=== PATIENT | male | born 2000 | race Caucasian/White ===

== ENCOUNTER 2021-09-19 19:30 | Emergency (ER) | payer OTHER, SELFPAY ==
[2021-09-19 19:46] VITALS: BP 180/88; PULSE 124; O2SAT 98
== END 2021-09-19 21:22 | disposition left against medical advice (07) ==
PROVIDERS: Emergency Provider Emergency Medicine
DX: R51.9 Headache, unspecified (principal); R68.83 Chills (without fever); R11.10 Vomiting, unspecified

== ENCOUNTER 2022-06-30 03:35 | Emergency (ER) | payer OTHER, SELFPAY ==
[2022-06-30 03:40] VITALS: BP 114/79; PULSE 66; RESP 12; TEMP 36.5; O2SAT 97; BMI 25.1
[2022-06-30 04:03] VITALS: BP 148/78; PULSE 55; RESP 18; TEMP 36.1; O2SAT 97
--- NOTE | 2022-06-30 04:09 | PC.NURSE ---
pt placed on hall monitor - ekg being obtained. capnography on. pt vomiting.
--- NOTE | 2022-06-30 04:12 | ECG_ITS ---
Test Reason : ETOH Blood Pressure : / mmHG Vent. Rate : 065 BPM Atrial Rate : 065 BPM P-R Int : 160 ms QRS Dur : 098 ms QT Int : 390 ms P-R-T Axes : 071 094 058 degrees QTc Int : 405 ms Normal sinus rhythm Rightward axis Intra-ventricular conduction delay Possible Early repolarization Borderline ECG No previous ECGs available Referred By: Gem Ortega Electronically Signed By:WING GOINS MD
[2022-06-30 04:58] LABS: MANUAL DIFF FLAG NO
[2022-06-30 04:59] LABS: Basophils Percent Auto 0.5 % (0-2); Eosinophils Percent Auto 0.4 % (0-4); Hematocrit 41.9 % (42.0-52.0); Hemoglobin 12.8 g/dl (14.0-18.0); Imm Gran Abs Auto 0.02 X10*3/uL (0.00-0.03); Imm Gran Pct Auto 0.3 % (0.0-0.4); Lymphocytes Absolute Auto 1.8 X10*3/uL (1.2-4.9); Lymphocytes Percent Auto 22.4 % (20-40); Mean Corpuscular HGB Conc 30.5 g/dl (31.0-36.0); Mean Corpuscular Hemoglobin 22.3 pg (27.0-33.0); Mean Corpuscular Volume 73.1 fL (80.0-98.0); Mean Platelet Volume 10.8 fL (9.4-12.4); Monocytes Absolute Auto 0.4 X10*3/uL (0.1-1.2); Monocytes Percent Auto 5.4 % (2-11); Neutrophils Absolute Auto 5.6 x10*3/uL (2.0-8.3); Platelet Count 346 X10*3/uL (160-400); Red Blood Count 5.73 X10*6/uL (4.60-5.80); Red Cell Distribution Width 13.7 % (11.0-16.0); White Blood Count 7.9 X10*3/uL (4.8-10.8)
--- OUTSIDE RECORDS SUMMARY | 2022-06-30 05:00 | XMS_ITS | Continuity of Care Document ---
:2000 Author Organization [facility] Address [address] [place] [address]- Care Team Providers Name Role Phone Not on Staff, PCP Primary Care Physician Unavailable Encounter [facility] [place] Date(s): 07/07/21 - 07/07/[address] [address]- Encounter Diagnosis Chest wall pain (Final) - 07/07/21 Discharge Disposition: A-D/C Home Attending Physician: Radha Jerez MD Admitting Physician: Radha Jerez MD Referring Physician: Not on Staff, Referring MD Allergies, Adverse Reactions, Alerts Substance Reaction Severity Status NKA Active Immunizations Given and Recorded Vaccine Date Status Refusal Reason influenza virus vaccine, inactivated 05/29/15 Given influenza virus vaccine, inactivated 09/27/14 Given Medications amphetamine-dextroamphetamine 15 mg oral tablet TAKE 1 TABLET BY MOUTH EVERY MORNING Start Date: 05/31/15 Status: OrderedClonidine 0 Refills, Maintenance, 01/23/15 15:36:19 Start Date: 01/23/15 Status: OrdereddiphenhydrAMINE 50 mg oral capsule TAKE ONE CAPSULE BY MOUTH AT BEDTIME Start Date: 05/31/15 Status: Orderedferrous sulfate 325 mg oral enteric coated tablet 1 tablet = 325 mg, By Mouth, 2 times a day, may take with food to minimize abdominal discomfort, # 30 tablet, 1 Refills, Maintenance, 01/23/15 15:00:04, EC Tablet, instructions in telugu please, 1 tablet By Mouth 2 times a day,Instr:may take with otto... Start Date: 01/23/15 Status: Orderedibuprofen 600 mg oral tablet 600 mg, 1, tablet, By Mouth, Every 6 hours, # 40 tablet, Refills 0, Tot. Refills 0, Maintenance, 04/08/18 15:54:39 EDT, Print Requisition Start Date: 04/08/18 Status: OrderedOralone 0.1% mucous membrane paste 1 application, By Mouth, 3 times a day, apply small dab to the lesion until a thin film develops, # 5 Gm, 0 Refills, Maintenance, 01/25/15 16:07:28, Paste, 1 application By Mouth 3 times a day,Instr:apply small dab to the lesion until a thin film deve... Start Date: 01/25/15 Status: OrderedPercocet-5/325 325 mg-5 mg oral tablet 1, tablet, By Mouth, Every 4 hours, PRN, partial fill up on patient request, # 12 tablet, Refills 0,Tot. Refills 0, Maintenance, for pain, 04/08/18 15:54:37 EDT, Print Requisition, Tablet Start Date: 04/08/18 Status: Orderedsertraline 50 mg oral tablet TAKE 1 TABLET BY MOUTH EVERY MORNING Start Date: 05/31/15 Status: OrderedtraZODone 50 mg oral tablet TAKE 1 TABLET BY MOUTH AT BEDTIME Start Date: 05/31/15 Status: OrderedZofran ODT 4 mg oral tablet, disintegrating 1 tablet = 4 mg, By Mouth, Every 8 hours, # 12 tablet, 0 Refills, Maintenance, 04/08/18 15:54:26 EDT Start Date: 04/08/18 Status: Ordered Problem List Condition Effective Dates Status Health Status Informant Anemia(Confirmed) Active Anxiety - Psychiatrist: Yessi Mack(Confirmed)1 Ulcer aphthous oral(Confirmed) Active ADHD (attention deficit hyperactivity Active disorder)(Confirmed) DCF Involvement(Confirmed) Active Weight loss(Confirmed) Active 1Gandara Results Radiology Reports Exam Date Time Procedure Performing Provider Status 07/07/21 1:56 PM Chest 2 Views Frontal and Ekenbarger , Chayo L ; Auth (Verified) Lat Notes:(Chest 2 Views Frontal and Lat) Reason For Exam: Pleuritic PainRESULT: Chest 2 Views Frontal and Lat PA and lateral chest dated July 07, 2021. No prior studies are available. HISTORY: Pain. FINDINGS: The cardiac silhouette is within normal limits for size. Hilar and mediastinal structures are unremarkable. No airspace infiltrate or pleural effusion is identified. Visualized osseous structures are within normal limits. IMPRESSION: Normal chest x-ray. Examination 35970. Thank you for allowing me to participate in the care of this patient. WSN: [id number] Ordering Physician: Kym Rivers Dictated By: Casey Cerrato MD Dictated Date/Time: 07/07/21 2:12 pm Reviewed By: Casey Cerrato MD Signed By: Casey Cerrato MD Signed Date/Time: 07/07/21 2:12 pm Transcribed By: GEORGE Transcribed Date/Time: 07/07/21 2:12 pm Vital Signs Most recent to oldest 1 2 3 [Reference Range]: Oxygen Saturation [94-100 99 % 99 % 98 % %] (07/07/21 3:14 PM) (07/07/21 1:26 PM) (07/07/21 11:39 AM) Pulse Rate [55-90 bpm] 80 bpm 65 bpm 80 bpm (07/07/21 3:14 PM) (07/07/21 1:26 PM) (07/07/21 11:39 AM) Blood Pressure 135/64 mm Hg 134/72 mm Hg 142/70 mm Hg [90-138/55-84 mm Hg] (07/07/21 3:14 PM) (07/07/21 1:26 PM) *H* (07/07/21 11:39 AM) Respiratory Rate [16-30 19 br/min 18 br/min 17 br/mi n br/min] (07/07/21 3:14 PM) (07/07/21 1:26 PM) (07/07/21 11:39 AM) Temperature [96.8-100.4 98.1 DegF 98 DegF DegF] (07/07/21 11:39 AM) (07/07/21 10:44 AM) Mode of Delivery (Oxygen) Room air Room air Room a ir (07/07/21 3:14 PM) (07/07/21 1:26 PM) (07/07/21 11:39 AM) Temperature Route Oral Oral (07/07/21 11:39 AM) (07/07/21 10:44 AM) Social History Social History Type Response Smoking Status Never smoker entered on: 09/30/14 Sex Male
--- OUTSIDE RECORDS SUMMARY | 2022-06-30 05:00 | XMS_ITS | Continuity of Care Document ---
:2000 Author Organization [facility] Address [address] [place] [address]- Care Team Providers Name Role Phone Not on Staff, PCP Primary Care Physician Unavailable Encounter [facility] Date(s): 03/05/20 - 03/05/[address] [address]- [facility] Discharge Disposition: A-D/C Walkout Attending Physician: Not on Staff, Attending MD Admitting Physician: Not on Staff, Admitting MD Referring Physician: Not on Staff, Referring [...] Maintenance, 01/23/15 15:00:04, EC Tablet, instructions in hebrew please, 1 tablet By Mouth 2 times [...] DCF Involvement(Confirmed) Active Weight loss(Confirmed) Active 1Gandara Social History Social History Type Response Smoking Status Never smoker entered on: 09/30/14 Sex Male
--- OUTSIDE RECORDS SUMMARY | 2022-06-30 05:00 | XMS_ITS | Continuity of Care Document ---
:2000 Author Organization [facility] Address [address] [place] [address]- Care Team Providers Name Role Phone Not on Staff, PCP Primary Care Physician Unavailable [place] [facility] [place] Date(s): 08/29/21 - 08/29/[address] [address]- Encounter Diagnosis Viral syndrome (Final) - 08/29/21 Flu (Final) - 08/29/21 Discharge Disposition: A-D/C Home Attending Physician: Rey Miller MD Admitting Physician: Rey Miller MD Referring Physician: Not on Staff, Referring [...] Maintenance, 01/23/15 15:00:04, EC Tablet, instructions in syriac please, 1 tablet By Mouth 2 times a day,Instr:may take with otto... Start Date: 01/23/15 Status: Orderedibuprofen 600 mg oral tablet 600 mg, 1, tablet, By Mouth, Every 6 hours, # 40 tablet, Refills 0, Tot. Refills 0, Maintenance, 04/08/18 15:54:39 EDT, Print Requisition Start Date: 04/08/18 Status: Orderedondansetron 4 mg oral tablet, disintegrating 1 tablet = 4 mg, By Mouth, Every 8 hours, PRN Nausea & Vomiting, for 3 days, # 15 tablet, 0 Refills, Acute 09/01/21 7:19:00 EST, 08/29/21 7:19:00 EST, Tablet, [facility]/pharmacy #[id number], Partial fill upon patient request if the prescription is for a schedule... Start Date: 08/29/21 Stop Date: 09/01/21 Status: OrderedOralone 0.1% mucous membrane paste 1 [...] Involvement(Confirmed) Active Weight loss(Confirmed) Active 1Gandara Results Orders for Microbiology Reports Name Date Group A Strep Screen and Culture 08/29/21 Microbiology Reports TEST:Group A Strep Screen and Culture STATUS:Unauthenticated BODY SITE: SOURCE:THROAT COLLECTED DATE/TIME:08/29/21 5:45 AMGroup A Strep Screen and Culture SPECIMEN DESCRIPTION : THROAT SWAB SPECIAL REQUESTS : NONE DIRECT EXAM : RAPID GROUP A RESULT IS NEGATIVE, REFER TO CULTURE RESULT. REPORT STATUS : PRELIMINARY REPORT Radiology Reports Exam Date Time Procedure Performing Provider Status 08/29/21 6:22 AM Chest Portable Alaina Peterson; Auth (Maikel d) Notes:(Chest Portable) Reason For Exam: CoughRESULT: Chest Portable Chest Portable HX OF PRESENT ILLNESS: Pt reporting sore throat, body aches, cough, runny nose x 2 days, denies n v d taking Motrin, Tylenol ( 1hr CARTON FILLER) and DayQuil at home with little relief; Reason: Cough; Clinical Question(s): Pneumonia COMPARISON: 07/07/2021 FINDINGS: LINES AND TUBES: None. LUNGS AND PLEURA: Clear lungs. Normal pulmonary vascularity. No pleural effusion. No pneumothorax. HEART, MEDIASTINUM AND FLACA: Heart is normal in size. Normal upper mediastinal and hilar contour. BONES AND SOFT TISSUES: No acute abnormality. IMPRESSION: Normal. I have personally reviewed the images and I agree with this report. WSN: [id number] Ordering Physician: Alessandra Delgado Dictated By: nAgelica Crawford DO Dictated Date/Time: 08/29/21 8:02 am Reviewed By: Mark Mosqueda MD Signed By: Makr Mosqueda MD Signed Date/Time: 08/29/21 8:07 am Transcribed By: GEORGE Transcribed Date/Time: 08/29/21 7:51 am Vital Signs Most recent to oldest 1 2 3 [Reference Range]: Oxygen Saturation [94-100 %] 99 % 99 % 99 % (08/29/21 7:37 AM) (08/29/21 4:59 AM) (08/29/21 4:51 AM) Pulse Rate [55-90 bpm] 116 bpm 117 bpm 128 bpm *H* *H* *H* (08/29/21 7:37 AM) (08/29/21 4:59 AM) (08/29/21 4:51 AM) Blood Pressure [90-138/55-84 138/62 mm Hg 126/77 mm Hg mm Hg] (08/29/21 7:37 AM) (08/29/21 4:59 AM) Respiratory Rate [16-30 16 br/min 18 br/min br/min] (08/29/21 7:37 AM) (08/29/21 4:59 AM) Temperature [96.8-100.4 100.4 DegF 100.6 DegF DegF] (08/29/21 7:37 AM) *H* (08/29/21 4:59 AM) Mode of Delivery (Oxygen) Room air Room air Room a ir (08/29/21 7:37 AM) (08/29/21 4:59 AM) (08/29/21 4:51 AM) Blood pressure sites Arm, right (08/29/21 7:37 AM) Temperature Route Oral Oral (08/29/21 7:37 AM) (08/29/21 4:59 AM) Social History Social History Type Response Smoking Status Never smoker entered on: 09/30/14 Sex Male
--- OUTSIDE RECORDS SUMMARY | 2022-06-30 05:00 | XMS_ITS | Continuity of Care Document ---
:2000 Author Organization [facility] Address [address] [place] [address]- Care Team Providers Name Role Phone Not on Staff, PCP Primary Care Physician Unavailable Encounter [facility] [place] Date(s): 07/05/21 - 07/06/21 [facility] [address] [place] [id number]- Discharge Disposition: A-D/C Walkout Attending Physician: Not [...] Maintenance, 01/23/15 15:00:04, EC Tablet, instructions in croatian please, 1 tablet By Mouth 2 times [...] DCF Involvement(Confirmed) Active Weight loss(Confirmed) Active 1Gandara Vital Signs Most recent to oldest [Reference Range]: 1 Oxygen Saturation [94-100 %] 99 % (07/05/21 10:00 PM) Pulse Rate [55-90 bpm] 86 bpm (07/05/21 10:00 PM) Blood Pressure [90-138/55-84 mm Hg] 132/79 mm Hg (07/05/21 10:00 PM) Respiratory Rate [16-30 br/min] 16 br/min (07/05/21 10:00 PM) Temperature [96.8-100.4 DegF] 98.3 DegF (07/05/21 10:00 PM) Mode of Delivery (Oxygen) Room air (07/05/21 10:00 PM) Blood pressure sites Arm, right (07/05/21 10:00 PM) Temperature Route Oral (07/05/21 10:00 PM) Social History Social History Type Response Smoking Status Never smoker entered on: 09/30/14 Sex Male
--- OUTSIDE RECORDS SUMMARY | 2022-06-30 05:00 | XMS_ITS | Continuity of Care Document ---
:2000 Author Organization [facility] Address [address] [place] [address]- Care Team Providers Name Role Phone Saritha Mccall MD Primary Care Physician Encounter [facility] [place] Date(s): 09/19/21 - 09/19/[address] [address]- Discharge Disposition: A-D/C Walkout Attending Physician: Not [...] Maintenance, 01/23/15 15:00:04, EC Tablet, instructions in turkish please, 1 tablet By Mouth 2 times [...] Most recent to oldest [Reference Range]: 1 2 Oxygen Saturation [94-100 %] 98 % 95 % (09/19/21 8:58 PM) (09/19/21 8:34 PM) Pulse Rate [55-90 bpm] 118 bpm 135 bpm *H* *H* (09/19/21 8:58 PM) (09/19/21 8:34 PM) Blood Pressure [90-138/55-84 mm Hg] 153/77 mm Hg *H* (09/19/21 8:58 PM) Respiratory Rate [16-30 br/min] 18 br/min (09/19/21 8:58 PM) Temperature [96.8-100.4 DegF] 99.4 DegF (09/19/21 8:58 PM) Mode of Delivery (Oxygen) Room air Room air (09/19/21 8:58 PM) (09/19/21 8:34 PM) Blood pressure sites Arm, right (09/19/21 8:58 PM) Temperature Route Oral (09/19/21 8:58 PM) Social History Social History Type Response Smoking Status Never smoker entered on: 09/30/14 Sex Male
--- OUTSIDE RECORDS SUMMARY | 2022-06-30 05:00 | XMS_ITS | Continuity of Care Document ---
:2000 Author Organization [facility] Address [address] [place] [address]- Care Team Providers Name Role Phone Saritha Mccall MD Primary Care Physician [phone] Encounter [facility] Date(s): 09/19/21 - 09/19/[address] [address]- Discharge Disposition: A-D/C Home Attending Physician: Wesley Castro MD Admitting Physician: Wesley Castro MD Referring Physician: Not on Staff, Referring [...] EDT, Print Requisition Start Date: 04/08/18 Status: OrderedMotrin Tablet 400 mg, Tablet, By Mouth, Once, STAT, 09/19/21 13:51:00 EST, Stop date 09/19/21 13:51:00 EST Start Date: 09/19/21 Stop Date: 09/19/21 Status: CompletedOralone 0.1% mucous membrane paste 1 application, By [...] Exam Date Time Procedure Performing Provider Status 09/19/21 3:42 PM Chest Portable Meredith Nicholson; Auth (Verifie d) Notes:(Chest Portable) Reason For Exam: CoughRESULT: Chest Portable Chest Portable INDICATION: Bodyaches, fever and fatigue COMPARISON: 09/02/2021 FINDINGS: LINES AND TUBES: None. LUNGS AND PLEURA: Clear lungs. Normal pulmonary vascularity. No pleural effusion. No pneumothorax. HEART, MEDIASTINUM AND FLACA: Heart is normal in size. Normal upper mediastinal and hilar contour. BONES AND SOFT TISSUES: Normal. IMPRESSION: Normal. WSN: [id number] Ordering Physician: Harry Piña Dictated By: Jhonathan Wagner MD Dictated Date/Time: 09/19/21 3:43 pm Reviewed By: Jhonathan Wagner MD Signed By: Jhonathan Wagner MD Signed Date/Time: 09/19/21 3:43 pm Transcribed By: GEORGE Transcribed Date/Time: 09/19/21 3:43 pm Vital Signs Most recent to oldest 1 2 3 [Reference Range]: Oxygen Saturation [94-100 %] 100 % 99 % 98 % (09/19/21 4:52 PM) (09/19/21 2:42 PM) (09/19/21 1:3 7 PM) Pulse Rate [55-90 bpm] 109 bpm 112 bpm 124 bpm *H* *H* *H* (09/19/21 4:52 PM) (09/19/21 2:42 PM) (09/19/21 1:3 7 PM) Blood Pressure [90-138/55-84 mm 133/67 mm Hg 120/63 mm Hg 142/76 mm Hg Hg] (09/19/21 4:52 PM) (09/19/21 2:42 PM) *H* (09/19/21 1:37 PM ) Respiratory Rate [16-30 br/min] 24 br/min 18 br/min 20 br/min (09/19/21 4:52 PM) (09/19/21 2:54 PM) (09/19/21 2:4 2 PM) Temperature [96.8-100.4 DegF] 98.6 DegF 98.8 DegF 10 2.6 DegF (09/19/21 4:52 PM) (09/19/21 2:42 PM) *H* (09/19/21 1:37 PM ) Mode of Delivery (Oxygen) Room air Room air Room a ir (09/19/21 4:52 PM) (09/19/21 2:42 PM) (09/19/21 1:3 7 PM) Blood pressure sites Arm, left Arm, left Arm, right (09/19/21 4:52 PM) (09/19/21 2:42 PM) (09/19/21 1:3 7 PM) Temperature Route Oral Oral Oral (09/19/21 4:52 PM) (09/19/21 2:42 PM) (09/19/21 1:3 7 PM) Social History Social History Type Response Smoking Status Never smoker entered on: 09/30/14 Sex Male
[2022-06-30 05:17] LABS: Acetaminophen LAB < 1 mcg/mL (<30); Alanine Aminotransferase 25 U/L (0-40); Albumin Level 4.7 g/dL (3.5-5.0); Alkaline Phosphatase 62 U/L (39-117); Anion Gap 17 (12-20); Aspartate Amino Transferase 26 U/L (5-37); Bilirubin Total 0.4 mg/dL (0.0-1.0); Blood Urea Nitrogen 11 mg/dL (9-16); Calcium 9.1 mg/dL (8.4-10.2); Carbon Dioxide 25 mmol/L (22-29); Chloride 103 mmol/L (96-108); Creatinine Clr Calc Pharmacy 152.9; Estimated Glomerular Filt Rate > 60; Ethanol 168 mg/dL; Glucose Random 104 mg/dL (60-115); Potassium 4.2 mmol/L (3.3-5.1); Salicylate < 5.0 mg/dL (15-30); Sodium 141 mmol/L (135-145); Total Protein 7.8 g/dL (6.5-8.0)
[2022-06-30 05:21] LABS: Troponin-I High Sensitivity < 3.5 ng/L (<3.5-35.0)
[2022-06-30 05:56] VITALS: BP 115/66; PULSE 74; RESP 18; TEMP 36.4; O2SAT 99
--- NOTE | 2022-06-30 05:58 | ED.ALCOHOL ---
HPI - Alcohol General Chief Complaint: ETOH/Substance Use Stated Complaint: drunk and took pills Time Seen by Provider: 06/30/22 05:28 Source: other (Girlfriend) Mode of arrival: EMS History of Present Illness HPI narrative: Is a 21-year-old male who is brought in via EMS after he was dropped off at his girlfriend's house. History is provided primarily by the goal friend who states that he takes Percocet off the street, ?he is addicted to Percocet? and then when out to the club with his friends and was drinking alcohol. EMS reports that patient denied SI/HI but did report that he took 6-7 per 10 mg Percocets and drink a large amount of alcohol. Related Data Allergies Allergy/AdvReac Type Severity Reaction Status Date / Time No Known Allergies Allergy Verified 06/30/22 03:40 [No Known Allergies*] Review of Systems Review of Systems: Pertinent positives and negatives as stated in HPI. PMFSH Past Medical History Source: nursing notes reviewed Social History Social History Advance Directives: No Advance Directives Information Provided: Yes Physical Exam ED Vital Signs: Vital Signs - 24 hr 06/30/22 03:40 06/30/22 04:03 06/30/22 05:56 Temperature 97.7 F 97.0 F 97.5 F Pulse Rate 66 55 74 Respiratory Rate 12 18 18 Blood Pressure 114/79 148/78 H 115/66 Pulse Oximetry 97 97 99 Oxygen Delivery Method Room Air Room Air Nasal Cannula with ETCO2 BMI result Body Mass Index 25.1 VITAL SIGNS: Reviewed. GENERAL: Well developed, well nourished, in no acute distress. HEAD: Normocephalic/atraumatic EYES: PERRLA, EOMI EARS: Ext canals without abnormality OROPHARYNX: no oral lesions noted, posterior pharynx clear LUNGS: Normal breath sounds. No adventitious sounds or accessory muscle use. SpO2<99> CARDIOVASCULAR: Regular rate and rhythm without noted murmurs ABDOMEN: Soft, non-tender, non-distended with bowel sounds. MUSCULOSKELETAL: No tenderness, deformities, or effusions noted on gross inspection. EXTREMITIES: No cyanosis, clubbing or edema. SKIN: Inspection of the skin reveals no rashes NEUROLOGIC: GCS-14, Strength and sensation to light touch were grossly intact x 4. Course Course Course Narrative: 21-year-old male with history and clinical presentation consistent with combination of Percocet and alcohol use, 1 dose of intranasal Narcan was administered, patient is currently on capnography an oxygenating well in the high 90s and on review of all investigations there are no acute findings. BA L-168. Patient will need to stay until he is clinically sober. Reevaluation(s) Reevaluation #1: Patient placed in physician observation because the patient needed more time for metabolizing alcohol/Percocet. At the time observation was started the patient's vital signs were stable, patient is drowsy but arousable, neuro: Nonfocal, CV RRR, lungs clear Time: 06:23 MDM - Alcohol Lab Data Result diagrams: 06/30/22 04:44 06/30/22 04:51 Labs: Lab Results 06/30/22 06/30/22 06/30/22 Range/Units 04:44 04:44 04:51 WBC 7.9 (4.8-10.8) X10*3/uL RBC 5.73 (4.60-5.80) X10*6/uL Hgb 12.8 L (14.0-18.0) g/dl Hct 41.9 L (42.0-52.0) % MCV 73.1 L (80.0-98.0) fL MCH 22.3 L (27.0-33.0) pg MCHC 30.5 L (31.0-36.0) g/dl RDW 13.7 (11.0-16.0) % Plt Count 346 (160-400) X10*3/uL MPV 10.8 (9.4-12.4) fL Immature Gran % (Auto) 0.3 (0.0-0.4) % Neut % (Auto) 71.0 (45-73) % Lymph % (Auto) 22.4 (20-40) % [place] % (Auto) 5.4 (2-11) % Eos % (Auto) 0.4 (0-4) % Baso % (Auto) 0.5 (0-2) % Lymph # (Auto) 1.8 (1.2-4.9) X10*3/uL [place] # (Auto) 0.4 (0.1-1.2) X10*3/uL Eos # (Auto) 0.0 (0.0-0.4) X10*3/uL Baso # (Auto) 0.0 (0.0-0.2) X10*3/uL Abs Immat Gran (auto) 0.02 (0.00-0.03) X10*3/uL Absolute Neuts (auto) 5.6 (2.0-8.3) x10*3/uL Absolute Nucleated RBC 0.000 (0.0-0.012) X10*3/uL Nucleated RBC % (auto) 0.0 (0.0-0.2) /100WBC Sodium 141 (135-145) mmol/L Potassium 4.2 (3.3-5.1) mmol/L Chloride 103 (96-108) mmol/L Carbon Dioxide 25 (22-29) mmol/L Anion Gap 17 (12-20) BUN 11 (9-16) mg/dL Creatinine 0.80 (0.5-1.4) mg/dL Estim Creat Clear Calc 152.9 Estimated GFR > 60 Random Glucose 104 (60-115) mg/dL Calcium 9.1 (8.4-10.2) mg/dL Total Bilirubin 0.4 (0.0-1.0) mg/dL AST 26 (5-37) U/L ALT 25 (0-40) U/L Alkaline Phosphatase 62 (39-117) U/L Troponin I High Sens < 3.5 (<3.5-35.0) ng/L Total Protein 7.8 (6.5-8.0) g/dL Albumin 4.7 (3.5-5.0) g/dL Salicylates < 5.0 L (15-30) mg/dL Acetaminophen < 1 (<30) mcg/mL Ethyl Alcohol 168 mg/dL Discharge Plan Discharge Clinical Impression: Alcoholic intoxication, Percocet use disorder, mild, abuse Patient Disposition: Still a Patient
[2022-06-30] MEDS: Naloxone HCl Nasal 4 MG SPRAY NOSTRILALT (06:13)
[2022-06-30 07:47] VITALS: BP 109/68; PULSE 99; RESP 18; TEMP 36.6; O2SAT 97
[2022-06-30] MEDS: Naloxone HCl Nasal TAKE HOME 4 MG SPRAY NOSTRILALT (08:23)
== END 2022-06-30 08:24 | disposition home or self-care (01) ==
PROVIDERS: Emergency Provider Student in an Organized Health Care Education/Training Program
DX: F10.129 Alcohol abuse with intoxication, unspecified (principal); Y90.6 Blood alcohol level of 120-199 mg/100 ml; F11.10 Opioid abuse, uncomplicated; Z79.899 Other long term (current) drug therapy; Z71.41 Alcohol abuse counseling and surveillance of alcoholic
CPT/HCPCS: 36415; 80053; 80143; 80179; 82077; 84484; 85025; 93005; 99284; 99285

== ENCOUNTER 2022-12-15 20:30 | Emergency (ER) | payer OTHER, SELFPAY ==
[2022-12-15 20:40] VITALS: BP 117/72; PULSE 71; RESP 18; TEMP 36.1; O2SAT 99; BMI 25.1
--- NOTE | 2022-12-15 20:45 | ED.GENADULT ---
HPI - General Adult General Chief complaint: Headache Stated complaint: migraine/dizziness Related Data Allergies Allergy/AdvReac Type Severity Reaction Status Date / Time No Known Allergies Allergy Verified 12/15/22 20:40 [No Known Allergies*] [facility] Social History Social History Advance Directives: No Advance Directives Information Provided: No Physical Exam ED Vital Signs: Vital Signs - 24 hr 12/15/22 20:40 Temperature 97.0 F Pulse Rate 71 Respiratory Rate 18 Blood Pressure 117/72 Pulse Oximetry 99 Oxygen Delivery Method Room Air BMI result Body Mass Index 25.1 Course Course Course Narrative: RME: 22 yold male presents to the ED for headcahce, neck pain, and RUQ on palpation today. labs and SARS ordered Discharge Plan Discharge Patient Disposition: Elopement Discharge Date/Time: 12/15/22 22:00
== END 2022-12-15 22:00 | disposition left against medical advice (07) ==
PROVIDERS: Emergency Provider Emergency Medicine
DX: R51.9 Headache, unspecified (principal)
CPT/HCPCS: 99281

== ENCOUNTER 2023-07-15 12:15 | Emergency (ER) | payer SELFPAY ==
--- NOTE | 2023-07-15 12:49 | ED.GENADULT ---
HPI - General Adult General Chief complaint: Abdominal Pain Stated complaint: Abd pain Source: patient Mode of arrival: ambulatory Limitations: no limitations History of Present Illness HPI narrative: Patient is a 23 year old assigned male at with no reported medical history presenting to the emergency department today with abdominal pain. Patient states that over the last 3 weeks he has had lower abdominal pain. Patient denies any dizziness, lightheadedness, nausea, vomiting, fever, chills, blurry vision, double vision, loss of vision, chest pain, difficulty breathing, shortness of breath, back pain, night sweats, pain with urination, increased urinary frequency, increased urinary urgency, blood in his urine or stool, syncope or a near syncopal episode, recent trauma or falls, bowel incontinence, bladder incontinence, bowel retention, bladder retention, or any other complaints at this time. Onset (ago): week(s) (3) Location: abdomen Radiation: non-radiation Severity: mild Severity scale (1-10): 3 Quality: aching and dull Pain Consistency: constant Relieving factors: none Exacerbating factors: none Associated symptoms: denies other symptoms Treatments prior to arrival: none Related Data Allergies Allergy/AdvReac Type Severity Reaction Status Date / Time No Known Allergies Allergy Verified 07/15/23 12:51 [No Known Allergies*] Review of Systems Constitutional: Constitutional: Reports no additional constitutional complaints, Denies chills, Denies fever(s) and Denies night sweats Eyes: Eyes: Reports no additional eye complaints, Denies blurry vision, Denies change in vision, Denies diplopia, Denies eye discharge, Denies loss of vision and Denies eye pain ENT: Denies dizziness Cardiovascular: Cardiovascular: Reports no additional cardiovascular complaints, Denies chest pain, Denies lightheadedness, Denies Loss of Consciousness and Denies dyspnea Respiratory: Respiratory: Reports no additional respiratory complaints and Denies dyspnea Gastrointestinal: Gastrointestinal: Reports no additional gastrointestinal complaints, Reports abdominal pain, Denies melena, Denies hematochezia, Denies change in bowel habits and Denies change in stool character Genitourinary: Genitourinary: Reports no additional male genitourinary complaints, Denies hematuria, Denies oliguria, Denies difficulty urinating, Denies dysuria, Denies urinary frequency, Denies urinary hesitancy, Denies urinary incontinence and Denies urinary urgency Musculoskeletal: Musculoskeletal: Reports no additional musculoskeletal complaints, Denies numbness and Denies tingling Neurologic: Denies dizziness, Denies loss of vision, Denies numbness and Denies tingling Psychiatric: Psychiatric: Reports no additional psychiatric complaints Endocrine: Endocrine: Reports no additional endocrine complaints Hematologic/Lymphatic: Hematologic/Lymphatic: Reports no additional hematologic/lymphatic complaints Allergic/Immunologic: Allergic/Immunologic: Reports no additional allergic/immunologic complaints PMFSH Past Medical History Attestation statement: The following information was validated with the patient. Source: old records reviewed and nursing notes reviewed Social History Social History Advance Directives: No Advance Directives Information Provided: No Physical Exam ED Vital Signs: BMI result Body Mass Index 21.2 Const General: cooperative, no acute distress, alert and awake Nutritional Appearance: well nourished Orientation/consciousness: patient oriented x3 Limitations: no limitations HENMT Head: Yes normal to inspection and Yes atraumatic Ears: hearing grossly normal bilaterally and external ears normal General nose exam: Normal external nose present, no nasal discharge noted and no epistaxis Face and sinus: Yes normal facial exam, No abrasion and No laceration Mouth: Normal oral and palatal mucosa present, no drooling and no muffled voice Eyes General: appearance normal, both eyes and all related structures Periorbital: periorbital findings normal Eyelids: Yes eyelids normal Conjunctivae: conjunctivae normal Pupils: Equal, round and reactive pupils present EOM: EOMs intact bilaterally Neck Neck: Yes normal visual inspection, Yes full ROM and Yes no lymphadenopathy Chest Chest palpation & inspection: normal inspection of the chest Resp Effort & Inspection: normal respiratory effort and able to speak in complete sentences GI Inspection: Yes normal to inspection Neuro General: patient oriented x3 and moves all extremities Cranial nerves: Yes Equal, round and reactive pupils present Cognition (Neuro): normal cognition Motor exam (neuro): 5/5 motor strength present throughout Sensory Exam: Normal double simultaneous stimulation for sensation Coordination: [id number] test normal Extrem General: Yes normal to inspection, Yes full ROM and Yes capillary refill normal Psych Appearance: grossly normal Mental Status: mental status grossly normal Affect: normal affect Attitude: cooperative Thought process: Normal thought process present Thought content: Normal thought content present Insight: Good insight present (Psych) Course Course Course Narrative: RME performed by Cora Walker PA-C. Patient is a 22 year old assigned male at presenting to the emergency department with abdominal pain and weight loss. Labs and swabs ordered. Patient placed back in the waiting room pending room availability and results. Patient smells heavily of marijuana. Medical Decision Making Medical Decision Making [facility] Narrative: Patient is a 23 year old assigned male at with no reported medical history presenting to the emergency department today with abdominal pain. Patient's limited physical exam performed in triage was unremarkable. Patient's blood work was unremarkable. Patient's urine showed no acute process. Patient left the department without completing treatment. Patient left the department before myself or any of the other emergency department clinicians could explain or review physical exam findings, test results, need or lack there of for further testing, treatment plan, or treatment options. Differential Diagnosis Differential Diagnoses: The differential diagnosis associated with the presentation includes Abdominal pain Gastritis Marijuana use Admission/Observation Consideration of admission/observation: Escalation of care including admission/observation considered Patient would have been admitted to the hospital had his work up had any findings where hospital admission was appropriate, his clinical presentation warranted hospital admission, and he hadn't left the department. Lab Data [facility] Lab Attestation statement: I reviewed the patient's lab results. My interpretation of these studies and their corresponding values is that they are grossly normal. 07/15/23 14:30 07/15/23 14:30 Labs: Lab Results 07/15/23 Range/Units 14:30 WBC 6.7 (4.8-10.8) X10*3/uL RBC 5.47 (4.60-5.80) X10*6/uL Hgb 12.4 L (14.0-18.0) g/dl Hct 40.8 L (42.0-52.0) % MCV 74.6 L (80.0-98.0) fL MCH 22.7 L (27.0-33.0) pg MCHC 30.4 L (31.0-36.0) g/dl RDW 14.1 (11.0-16.0) % Plt Count 317 (160-400) X10*3/uL MPV 10.4 (9.4-12.4) fL Immature Gran % (Auto) 0.1 (0.0-0.4) % Neut % (Auto) 40.3 L (45-73) % Lymph % (Auto) 50.3 H (20-40) % [place] % (Auto) 7.9 (2-11) % Eos % (Auto) 1.0 (0-4) % Baso % (Auto) 0.4 (0-2) % Lymph # (Auto) 3.4 (1.2-4.9) X10*3/uL [place] # (Auto) 0.5 (0.1-1.2) X10*3/uL Eos # (Auto) 0.1 (0.0-0.4) X10*3/uL Baso # (Auto) 0.0 (0.0-0.2) X10*3/uL Abs Immat Gran (auto) 0.01 (0.00-0.03) X10*3/uL Absolute Neuts (auto) 2.7 (2.0-8.3) x10*3/uL Absolute Nucleated RBC 0.000 (0.0-0.012) X10*3/uL Nucleated RBC % (auto) 0.0 (0.0-0.2) /100WBC Sodium 141 (135-145) mmol/L Potassium 4.4 (3.3-5.1) mmol/L Chloride 105 (96-108) mmol/L Carbon Dioxide 29 (22-29) mmol/L Anion Gap 11 L (12-20) BUN 16 (9-16) mg/dL Creatinine 0.80 (0.5-1.4) mg/dL Estim Creat Clear Calc 139.1 Estimated GFR > 60 Random Glucose 82 (60-115) mg/dL Calcium 9.7 D (8.4-10.2) mg/dL Magnesium 2.0 (1.6-2.6) mg/dL Total Bilirubin 0.5 (0.0-1.0) mg/dL AST 24 (5-37) U/L ALT 20 (0-40) U/L Alkaline Phosphatase 56 (39-117) U/L Total Protein 8.0 (6.5-8.0) g/dL Albumin 4.8 (3.5-5.0) g/dL Influenza Type A (PCR) NEGATIVE (Negative) Influenza Type B (PCR) NEGATIVE (Negative) RSV RNA Qual (PCR) NEGATIVE (Negative) SARS-CoV-2 RNA (RT-PCR) NEGATIVE (Negative) Discharge Plan Discharge Clinical Impression: Abdominal pain Patient Disposition: Left W/O Completing Treatment Discharge Date/Time: 07/15/23 19:23
[2023-07-15 12:50] VITALS: BP 117/70; PULSE 82; RESP 18; TEMP 36.4; O2SAT 96; BMI 21.2
[2023-07-15 14:36] LABS: MANUAL DIFF FLAG NO
[2023-07-15 14:39] LABS: Basophils Percent Auto 0.4 % (0-2); Eosinophils Absolute Auto 0.1 X10*3/uL (0.0-0.4); Hematocrit 40.8 % (42.0-52.0); Hemoglobin 12.4 g/dl (14.0-18.0); Imm Gran Abs Auto 0.01 X10*3/uL (0.00-0.03); Imm Gran Pct Auto 0.1 % (0.0-0.4); Lymphocytes Absolute Auto 3.4 X10*3/uL (1.2-4.9); Lymphocytes Percent Auto 50.3 % (20-40); Mean Corpuscular HGB Conc 30.4 g/dl (31.0-36.0); Mean Corpuscular Hemoglobin 22.7 pg (27.0-33.0); Mean Corpuscular Volume 74.6 fL (80.0-98.0); Mean Platelet Volume 10.4 fL (9.4-12.4); Monocytes Absolute Auto 0.5 X10*3/uL (0.1-1.2); Monocytes Percent Auto 7.9 % (2-11); Neutrophils Absolute Auto 2.7 x10*3/uL (2.0-8.3); Neutrophils Percent Auto 40.3 % (45-73); Platelet Count 317 X10*3/uL (160-400); Red Blood Count 5.47 X10*6/uL (4.60-5.80); Red Cell Distribution Width 14.1 % (11.0-16.0); White Blood Count 6.7 X10*3/uL (4.8-10.8)
[2023-07-15 14:52] LABS: Alanine Aminotransferase 20 U/L (0-40); Albumin Level 4.8 g/dL (3.5-5.0); Alkaline Phosphatase 56 U/L (39-117); Anion Gap 11 (12-20); Aspartate Amino Transferase 24 U/L (5-37); Bilirubin Total 0.5 mg/dL (0.0-1.0); Blood Urea Nitrogen 16 mg/dL (9-16); Calcium 9.7 mg/dL (8.4-10.2); Carbon Dioxide 29 mmol/L (22-29); Chloride 105 mmol/L (96-108); Creatinine Clr Calc Pharmacy 139.1; Estimated Glomerular Filt Rate > 60; Glucose Random 82 mg/dL (60-115); Potassium 4.4 mmol/L (3.3-5.1); Sodium 141 mmol/L (135-145)
[2023-07-15 15:18] LABS: Influenza A PCR NEGATIVE (Negative); Influenza B PCR NEGATIVE (Negative); Resp Syncy Virus RNA Qual PCR NEGATIVE (Negative); SARS COV2 PCR INHOUSE NEGATIVE (Negative)
== END 2023-07-15 19:23 | disposition left against medical advice (07) ==
PROVIDERS: Physician Assistant Medical; Emergency Provider Emergency Medicine
DX: R10.30 Lower abdominal pain, unspecified (principal); Z20.822 Contact with and (suspected) exposure to COVID-19; Z20.828 Contact with and (suspected) exposure to other viral communicable diseases
CPT/HCPCS: 0241U; 80053; 83735; 85025; 99281; 99283

== ENCOUNTER 2023-09-10 08:47 | Emergency (ER) | payer OTHER, SELFPAY ==
[2023-09-10 09:01] VITALS: BP 125/62; PULSE 66; RESP 18; TEMP 37.3; O2SAT 99; BMI 21.2
[2023-09-10 09:21] LABS: MANUAL DIFF FLAG NO
[2023-09-10 09:25] LABS: Basophils Percent Auto 0.6 % (0-2); Eosinophils Absolute Auto 0.1 X10*3/uL (0.0-0.4); Eosinophils Percent Auto 1.9 % (0-4); Hematocrit 39.2 % (42.0-52.0); Hemoglobin 11.8 g/dl (14.0-18.0); Imm Gran Abs Auto 0.01 X10*3/uL (0.00-0.03); Imm Gran Pct Auto 0.2 % (0.0-0.4); Lymphocytes Absolute Auto 2.6 X10*3/uL (1.2-4.9); Lymphocytes Percent Auto 53.9 % (20-40); Mean Corpuscular HGB Conc 30.1 g/dl (31.0-36.0); Mean Corpuscular Hemoglobin 22.6 pg (27.0-33.0); Mean Platelet Volume 10.7 fL (9.4-12.4); Monocytes Absolute Auto 0.4 X10*3/uL (0.1-1.2); Neutrophils Absolute Auto 1.7 x10*3/uL (2.0-8.3); Neutrophils Percent Auto 35.4 % (45-73); Platelet Count 324 X10*3/uL (160-400); Red Blood Count 5.23 X10*6/uL (4.60-5.80); Red Cell Distribution Width 14.4 % (11.0-16.0); White Blood Count 4.9 X10*3/uL (4.8-10.8)
[2023-09-10 09:47] LABS: Alanine Aminotransferase 20 U/L (0-40); Albumin Level 4.5 g/dL (3.5-5.0); Alkaline Phosphatase 53 U/L (39-117); Anion Gap 9 (12-20); Aspartate Amino Transferase 24 U/L (5-37); Bilirubin Direct 0.2 mg/dL (0.0-0.5); Bilirubin Total 0.6 mg/dL (0.0-1.0); Blood Urea Nitrogen 12 mg/dL (9-16); Calcium 9.6 mg/dL (8.4-10.2); Carbon Dioxide 30 mmol/L (22-29); Chloride 107 mmol/L (96-108); Creatinine Clr Calc Pharmacy 137.5; Estimated Glomerular Filt Rate > 60; Glucose Random 93 mg/dL (60-115); Lipase 18 U/L (8-78); Potassium 4.2 mmol/L (3.3-5.1); Sodium 142 mmol/L (135-145); Total Protein 7.5 g/dL (6.5-8.0)
[2023-09-10 11:41] VITALS: BP 104/55; PULSE 60; RESP 16; O2SAT 100
--- NOTE | 2023-09-10 11:52 | ED.ABDPAIN ---
HPI - Abdominal Pain General Chief Complaint: Abdominal Pain Stated Complaint: Stomach Pain Time Seen by Provider: 09/10/23 11:33 Source: patient Mode of arrival: ambulatory Limitations: no limitations History of Present Illness HPI narrative: 23 yo male with PMH of opiate use disorder doing well on suboxone. He does not smoke THC regularly. He notes umbilical pain worse with eating x 2 months. He has seen blood in his stool 3x over the past two weeks. Since 2 months he has lost 20+ lbs. He denies NSAID use. He states he has pain and nausea anytime he eats. He has never taken PPI or antacids. MD elicited complaint: abdominal pain Pertinent past history: none Onset (ago): month(s) (2) Pain Consistency: constant Location: periumbilical Severity: moderate Quality: aching and fullness Radiation: none Migration to: no migration Exacerbating factors: eating Relieving factors: nothing Associated symptoms: nausea, anorexia and other (weight loss) Related Data Previous Rx's Medication Instructions Recorded omeprazole 20 mg capsule,delayed 20 mg PO BID #60 caps 09/10/23 release ondansetron 4 mg disintegrating 4 mg PO Q8H PRN nausea and 09/10/23 tablet vomiting #20 tabs sucralfate 100 mg/mL oral 10 ml PO BID #1,000 mL 09/10/23 suspension (Carafate) Allergies Allergy/AdvReac Type Severity Reaction Status Date / Time No Known Allergies Allergy Verified 09/10/23 09:05 [No Known Allergies*] Review of Systems Review of Systems Constitutional : pos Weight loss, No Fever, No Chills ENT/Mouth : No sore throat, No Rhinorrhea Eyes: No Swelling, No Redness Cardiovascular : No Chest Pain, No SOB, NoEdema Respiratory : No Cough, No Sputum, No Wheezing Gastrointestinal : Positive Nausea, no Vomiting, no Diarrhea, positive abdominal Pain, pos Hematochezia, No Melena Genitourinary : No Dysuria, No Urinary Frequency, No Hematuria, No Urgency Musculoskeletal : No joint pain, No Myalgias, No Joint Swelling Skin : No Skin Lesions, No rash Neuro : No Weakness, No Numbness, No Dizziness, No Headache Psych : No Anxiety/Panic, No Depression All other systems reviewed and are negative. [facility] Past Medical History Source: old records reviewed Onset Date is defined in the Problem List Problems that require an onset date and time if occurred within 24 hrs of arrival to the ED Aortic Dissection and Rupture; Neurologic impairment; Cardiopulmonary Arrest; Endotracheal Intubation; Insertion or Replacement of Mechanical Circulatory Assist Device Medical History Opiate use Social History Social History (Updated 09/10/23 @ 11:58 by Gosia Casper DO) Patient Tobacco Use Status: Never used Tobacco Smoked in Last 30 Days: No Use of substances other than those prescribed or required for medical reasons: No Advance Directives: No Physical Exam ED Vital Signs: Vital Signs - 24 hr 09/10/23 09:01 09/10/23 11:41 Temperature 99.1 F Pulse Rate 66 60 Respiratory Rate 18 16 Blood Pressure 125/62 104/55 L Pulse Oximetry 99 100 Oxygen Delivery Method Room Air Room Air BMI result Body Mass Index 21.2 Appearance: Alert. Oriented X3. No acute distress. Eyes: Pupils equal, round and reactive to light. ENT: Pharynx normal. Neck: Normal inspection. Neck supple. CVS: Normal heart rate and rhythm. Pulses normal. Respiratory: No respiratory distress. Breath sounds normal. Abdomen: Soft and mild ttp in umbilical area - he has old stretch gordon on abdomen I used to be fat but I lost so much weight Skin: Skin warm and dry. Normal skin color. Normal skin turgor. Extremities: No lower extremity edema. No calf ttp Neuro: Oriented X 3. No motor deficit. No sensory deficit. Medical Decision Making Medical Decision Making MDM Narrative: 23 yo male with hx of opiate use disorder doing well on suboxone comes in with c/o weight loss > 20lbs, intermittent blood stools no hx of UC or Crohns in the family, no NSAID use, no other hx or surgeries at this time labs, fluids, CT scan for mass ordered if negative will refer to GI and start on PPI, reglan and carafate. Differential Diagnosis Differential Diagnoses: The differential diagnosis associated with the presentation includes mass, PUD, med effect, ulcer Admission/Observation Consideration of admission/observation: Escalation of care including admission/observation considered labs and CT scan reassuring can be managed as outpatinet Lab Data [facility] Lab Attestation statement: I reviewed the patient's lab results. 09/10/23 09:15 09/10/23 09:15 Labs: Lab Results 09/10/23 09/10/23 Range/Units 09:15 09:19 WBC 4.9 (4.8-10.8) X10*3/uL RBC 5.23 (4.60-5.80) X10*6/uL Hgb 11.8 L (14.0-18.0) g/dl Hct 39.2 L (42.0-52.0) % MCV 75.0 L (80.0-98.0) fL MCH 22.6 L (27.0-33.0) pg MCHC 30.1 L (31.0-36.0) g/dl RDW 14.4 (11.0-16.0) % Plt Count 324 (160-400) X10*3/uL MPV 10.7 (9.4-12.4) fL Immature Gran % (Auto) 0.2 (0.0-0.4) % Neut % (Auto) 35.4 L (45-73) % Lymph % (Auto) 53.9 H (20-40) % [place] % (Auto) 8.0 (2-11) % Eos % (Auto) 1.9 (0-4) % Baso % (Auto) 0.6 (0-2) % Lymph # (Auto) 2.6 (1.2-4.9) X10*3/uL [place] # (Auto) 0.4 (0.1-1.2) X10*3/uL Eos # (Auto) 0.1 (0.0-0.4) X10*3/uL Baso # (Auto) 0.0 (0.0-0.2) X10*3/uL Abs Immat Gran (auto) 0.01 (0.00-0.03) X10*3/uL Absolute Neuts (auto) 1.7 L (2.0-8.3) x10*3/uL Absolute Nucleated RBC 0.000 (0.0-0.012) X10*3/uL Nucleated RBC % (auto) 0.0 (0.0-0.2) /100WBC ESR 2 (0-15) MM/HR Sodium 142 (135-145) mmol/L Potassium 4.2 (3.3-5.1) mmol/L Chloride 107 (96-108) mmol/L Carbon Dioxide 30 H (22-29) mmol/L Anion Gap 9 L (12-20) BUN 12 (9-16) mg/dL Creatinine 0.80 (0.5-1.4) mg/dL Estim Creat Clear Calc 137.5 Estimated GFR > 60 Random Glucose 93 (60-115) mg/dL Calcium 9.6 (8.4-10.2) mg/dL Total Bilirubin 0.6 (0.0-1.0) mg/dL Direct Bilirubin 0.2 (0.0-0.5) mg/dL AST 24 (5-37) U/L ALT 20 (0-40) U/L Alkaline Phosphatase 53 (39-117) U/L C-Reactive Protein < 0.10 (< or = 0.50) mg/dL Total Protein 7.5 (6.5-8.0) g/dL Albumin 4.5 (3.5-5.0) g/dL Lipase 18 (8-78) U/L Urine Color Yellow Urine Appearance Clear Urine pH 5.5 (5.0-9.0) Ur Specific [place] 1.025 (1.005-1.025) Urine Protein Negative (Neg-Trace) mg/dL Urine Glucose (UA) Negative (Negative) mg/dL Urine Ketones Negative (Negative) mg/dL Urine Blood Negative (Negative) Urine Nitrite Negative (Negative) Ur Leukocyte Esterase Negative (Negative) Urine Opiates Screen Not Detected (Not Detect) Urine Fentanyl Screen Not Detected (Not Detect) Ur Barbiturates Screen Not Detected (Not Detect) Ur Phencyclidine Scrn Not Detected (Not Detect) Ur Amphetamines Screen Not Detected (Not Detect) U Benzodiazepines Scrn Not Detected (Not Detect) Urine Cocaine Screen Not Detected (Not Detect) U Marijuana (THC) Screen Not Detected (Not Detect) Independent Interpretation I performed an independent interpretation of an: CT Scan (no acute findings) Radiology Impression Discussion of test interpretation with radiology: I have reviewed the radiologist's reading. External Record Review External record reviewed: Inpatient record Prescription Management I considered prescription management with: Other Medications Administered Discontinued Medications Generic Name Dose Route Start Last Admin Trade Name Freq PRN Reason Stop Dose Admin Sodium Chloride 1,000 mls @ 999 mls/hr 09/10/23 11:45 09/10/23 13:33 Ns IV 09/10/23 12:45 Infused .Q1H1M MARIMAR Infusion Iohexol 85 ml 09/10/23 12:21 09/10/23 12:21 Iohexol 350 Mg/Ml 100 Ml Infus..Btl IV 09/10/23 12:22 85 ml ONCE ONE Administration Discharge Plan Discharge Clinical Impression: PUD (peptic ulcer disease) Abdominal pain Qualifiers: Abdominal location: periumbilical Qualified Code(s): R10.33 - Periumbilical pain Patient Disposition: Home, Self-Care Instructions: Peptic Ulcer (ED), Diet for Stomach Ulcers and Gastritis (ED), Abdominal Pain (ED) Additional Instructions: return for worsening symptoms, fevers, vomiting. you need to get a primary care doctor they need to test you for h pylor this is an outpatient test it is okay to take tylenol but stop taking motrin, ibuprofen, aspirin, aleve Prescriptions: New ondansetron 4 mg tablet,disintegrating 4 mg PO Q8H PRN (Reason: nausea and vomiting) Qty: 20 0RF omeprazole 20 mg capsule,delayed release(DR/EC) 20 mg PO BID Qty: 60 1RF sucralfate [Carafate] 100 mg/mL suspension 10 ml PO BID Qty: 1000 0RF Referrals: Christiano Cunha MD [Physician] - (call to schedule appointment - GI doctor)
--- NOTE | 2023-09-10 12:31 | PC.NURSE ---
IV established, pt to CT scan and returned to stretcher. Fluids infusing. Appears in no distress at this time.
[2023-09-10 12:52] LABS: C Reactive Protein < 0.10 mg/dL (< or = 0.50)
== END 2023-09-10 15:22 | disposition home or self-care (01) ==
PROVIDERS: Emergency Provider Emergency Medicine; PCP Physician Assistant Medical
DX: K27.9 Peptic ulcer, site unspecified, unspecified as acute or chronic, without hemorrhage or perforation (principal); R10.33 Periumbilical pain; R63.4 Abnormal weight loss; Z68.21 Body mass index [BMI] 21.0-21.9, adult; K92.1 Melena; R11.0 Nausea; Z79.899 Other long term (current) drug therapy
CPT/HCPCS: 36415; 74177; 80048; 80076; 80307; 81003; 83690; 85025; 85652; 86140; 96360; 99284; Q9967

== ENCOUNTER 2023-10-10 21:30 | Emergency (ER) | payer OTHER, SELFPAY ==
[2023-10-10 21:48] VITALS: BP 131/73; PULSE 70; RESP 14; TEMP 36.8; O2SAT 100; BMI 20.5
--- NOTE | 2023-10-10 21:55 | ECG_ITS ---
Test Reason : chest pain Blood Pressure : / mmHG Vent. Rate : 068 BPM Atrial Rate : 068 BPM P-R Int : 154 ms QRS Dur : 094 ms QT Int : 374 ms P-R-T Axes : 084 090 069 degrees QTc Int : 397 ms Normal sinus rhythm Rightward axis Borderline ECG When compared to the previous EKG of No significant changes seen Referred By: Generic ED Physician Electronically Signed By:CATERINA PACHECO MD
[2023-10-10 22:14] LABS: MANUAL DIFF FLAG NO
[2023-10-10 22:16] LABS: Basophils Percent Auto 0.5 % (0-2); Eosinophils Absolute Auto 0.1 X10*3/uL (0.0-0.4); Eosinophils Percent Auto 0.9 % (0-4); Hematocrit 38.1 % (42.0-52.0); Hemoglobin 11.9 g/dl (14.0-18.0); Imm Gran Abs Auto 0.01 X10*3/uL (0.00-0.03); Imm Gran Pct Auto 0.2 % (0.0-0.4); Lymphocytes Absolute Auto 2.8 X10*3/uL (1.2-4.9); Lymphocytes Percent Auto 47.4 % (20-40); Mean Corpuscular HGB Conc 31.2 g/dl (31.0-36.0); Mean Corpuscular Volume 73.6 fL (80.0-98.0); Mean Platelet Volume 10.1 fL (9.4-12.4); Monocytes Absolute Auto 0.4 X10*3/uL (0.1-1.2); Monocytes Percent Auto 7.2 % (2-11); Neutrophils Absolute Auto 2.6 x10*3/uL (2.0-8.3); Neutrophils Percent Auto 43.8 % (45-73); Platelet Count 302 X10*3/uL (160-400); Red Blood Count 5.18 X10*6/uL (4.60-5.80); White Blood Count 5.9 X10*3/uL (4.8-10.8)
[2023-10-10 22:29] LABS: Alanine Aminotransferase 22 U/L (0-40); Albumin Level 4.6 g/dL (3.5-5.0); Alkaline Phosphatase 59 U/L (39-117); Anion Gap 11 (12-20); Aspartate Amino Transferase 24 U/L (5-37); Bilirubin Total 0.3 mg/dL (0.0-1.0); Blood Urea Nitrogen 16 mg/dL (9-16); Calcium 9.4 mg/dL (8.4-10.2); Carbon Dioxide 28 mmol/L (22-29); Chloride 106 mmol/L (96-108); Creatinine Clr Calc Pharmacy 140.3; Estimated Glomerular Filt Rate > 60; Glucose Random 113 mg/dL (60-115); Potassium 4.1 mmol/L (3.3-5.1); Sodium 141 mmol/L (135-145); Total Protein 7.7 g/dL (6.5-8.0)
[2023-10-10 22:39] LABS: Troponin-I High Sensitivity < 2.7 ng/L (<3.5-35.0)
[2023-10-11 00:01] VITALS: BP 112/71; PULSE 60; RESP 16; TEMP 36.4; O2SAT 100
--- NOTE | 2023-10-11 00:01 | ED.GENADULT ---
HPI - General Adult General Chief complaint: General Medical Stated complaint: weakness,fatigue Time Seen by Provider: 10/11/23 00:00 Source: patient Mode of arrival: ambulatory Limitations: no limitations History of Present Illness HPI narrative: 23-year-old male with a history of opiate use disorder, anxiety who presents emergency department for evaluation of 3 weeks of weakness and fatigue. Patient states that he has stomach ulcers and he is scheduled for an endoscopy and colonoscopy in the end of October. He denied abdominal pain, bloody stools, black stools dark tarry stool. There he falls asleep easily and has no energy. The patient states that he start ferrous sulfate 325 mg once a day yesterday but is not feeling any better. He states that over the past 2 days he has been having right-sided chest pain with pain radiating down his right arm. The pain is intermittent and not related to exertion. He states that prior to coming to the emergency department he had this pain in that lasted approximately 30 minutes. Patient states that he has a history of Percocet use disorder but he is currently on Suboxone states that he has not used any narcotics recently. He denies other drug use, alcohol or tobacco use. Related Data Previous Rx's Medication Instructions Recorded omeprazole 20 mg capsule,delayed 20 mg PO BID #60 caps 09/10/23 release ondansetron 4 mg disintegrating 4 mg PO Q8H PRN nausea and 09/10/23 tablet vomiting #20 tabs sucralfate 100 mg/mL oral 10 ml PO BID #1,000 mL 09/10/23 suspension (Carafate) ferrous sulfate 325 mg (65 mg 325 mg PO BID 60 days #120 tabs 10/11/23 iron) tablet Allergies Allergy/AdvReac Type Severity Reaction Status Date / Time No Known Allergies Allergy Verified 10/10/23 21:48 [No Known Allergies*] Review of Systems Review of Systems: Yes all other systems are reviewed and are negative [facility] Past Medical History [facility] Narrative: Social history: He denies tobacco, alcohol or drug use. He is on Suboxone for oxycodone use disorder. Medical History Opiate use Social History Social History Patient Tobacco Use Status: Never used Tobacco Advance Directives: No Advance Directives Information Provided: No Physical Exam ED Vital Signs: Vital Signs - 24 hr 10/10/23 21:48 Temperature 98.3 F Pulse Rate 70 Respiratory Rate 14 Blood Pressure 131/73 Pulse Oximetry 100 Oxygen Delivery Method Room Air BMI result Body Mass Index 20.5 Medical Decision Making Medical Decision Making [facility] Narrative: 23-year-old male with a history of opiate use disorder, anxiety who presents emergency department for evaluation of 3 weeks of weakness, fatigue and intermittent right-sided chest pain x2 days with pain radiating down his right arm, not related to exertion. Patient has a history of stomach ulcer and is scheduled for endoscopy at the end of October, he has had no significant change in his bowel movements. Patient states that he has stomach ulcers and he is scheduled for an endoscopy and colonoscopy in the end of October. He started ferrous sulfate 325 mg once a day yesterday he states this is not improved his fatigue. Vital signs were unremarkable. Examination was unremarkable. Differential diagnosis: Includes but is not limited to myocardial ischemia, myocardial infarction, chest wall pain, anemia, electrolyte abnormalities, GI bleed 00:35 My interpretation patient's laboratory evaluation is as follows: Microcytic anemia with an H&H of 11.9 and 38. MCV was 73.6. CMP was normal. Troponin was below detectable limits. Twelve EKG revealed no acute abnormalities At this time I do not have a clear etiology for the patient's symptoms but given his microcytic anemia, the patient may benefit from iron therapy. He was prescribed ferrous sulfate 325 mL twice a day for 2 months Patient was given printed and verbal instructions and discharged home Admission/Observation Consideration of admission/observation: Escalation of care including admission/observation considered Lab Data [facility] Lab Attestation statement: I reviewed the patient's lab results. 10/10/23 22:06 10/10/23 22:06 Labs: Lab Results 10/10/23 Range/Units 22:06 WBC 5.9 (4.8-10.8) X10*3/uL RBC 5.18 (4.60-5.80) X10*6/uL Hgb 11.9 L (14.0-18.0) g/dl Hct 38.1 L (42.0-52.0) % MCV 73.6 L (80.0-98.0) fL MCH 23.0 L (27.0-33.0) pg MCHC 31.2 (31.0-36.0) g/dl RDW 14.0 (11.0-16.0) % Plt Count 302 (160-400) X10*3/uL MPV 10.1 (9.4-12.4) fL Immature Gran % (Auto) 0.2 (0.0-0.4) % Neut % (Auto) 43.8 L (45-73) % Lymph % (Auto) 47.4 H (20-40) % [place] % (Auto) 7.2 (2-11) % Eos % (Auto) 0.9 (0-4) % Baso % (Auto) 0.5 (0-2) % Lymph # (Auto) 2.8 (1.2-4.9) X10*3/uL [place] # (Auto) 0.4 (0.1-1.2) X10*3/uL Eos # (Auto) 0.1 (0.0-0.4) X10*3/uL Baso # (Auto) 0.0 (0.0-0.2) X10*3/uL Abs Immat Gran (auto) 0.01 (0.00-0.03) X10*3/uL Absolute Neuts (auto) 2.6 (2.0-8.3) x10*3/uL Absolute Nucleated RBC 0.000 (0.0-0.012) X10*3/uL Nucleated RBC % (auto) 0.0 (0.0-0.2) /100WBC Sodium 141 (135-145) mmol/L Potassium 4.1 (3.3-5.1) mmol/L Chloride 106 (96-108) mmol/L Carbon Dioxide 28 (22-29) mmol/L Anion Gap 11 L (12-20) BUN 16 (9-16) mg/dL Creatinine 0.76 (0.5-1.4) mg/dL Estim Creat Clear Calc 140.3 Estimated GFR > 60 Random Glucose 113 (60-115) mg/dL Calcium 9.4 (8.4-10.2) mg/dL Total Bilirubin 0.3 (0.0-1.0) mg/dL AST 24 (5-37) U/L ALT 22 (0-40) U/L Alkaline Phosphatase 59 (39-117) U/L Troponin I High Sens < 2.7 (<3.5-35.0) ng/L Total Protein 7.7 (6.5-8.0) g/dL Albumin 4.6 (3.5-5.0) g/dL Independent Interpretation I performed an independent interpretation of an: EKG Interpretation: My independent interpretation the patient's 12 EKG done at 22:09 hours is as follows: Sinus rhythm with a rate of 68, normal MN interval, QRS duration QTC interval, no ST segment elevation, no ST segment no significant T-wave abnormalities , no PACs, no PVCs Prescription Management I considered prescription management with: Other (Ferrous sulfate prescription) Discharge Plan Discharge Clinical Impression: Microcytic anemia Fatigue Qualifiers: Encounter type: initial encounter Chest pain Qualifiers: Chest pain type: unspecified Qualified Code(s): R07.9 - Chest pain, unspecified Patient Disposition: Home, Self-Care Instructions: Iron Rich Diet (ED), Iron Deficiency Anemia (ED) Additional Instructions: Your EKG of your heart was normal and your troponin ( a marker of heart damage) was below detectable limits, this is reassuring and suggests that your chest pain is not caused by heart damage your heart attack Your blood work did reveal that your anemic (you have low red blood cell counts) and your red blood cell are smaller then they should be (low MCV). This suggests that you have low body stores of iron and your anemia should improve if you take iron for 2 months. Take ferrous sulfate 325 mg pills, 1 pill twice a day for 2 months. 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 Please return to the emergency department if your symptoms get worse or if you develop any symptoms that are concerning to you. Prescriptions: New ferrous sulfate 325 mg (65 mg iron) tablet 325 mg PO BID 60 Days Qty: 120 0RF No Action ondansetron 4 mg tablet,disintegrating 4 mg PO Q8H PRN (Reason: nausea and vomiting) Qty: 20 0RF omeprazole 20 mg capsule,delayed release(DR/EC) 20 mg PO BID Qty: 60 1RF sucralfate [Carafate] 100 mg/mL suspension 10 ml PO BID Qty: 1000 0RF Print Language: Malawian
--- NOTE | 2023-10-11 00:05 | MHC.EDTECH ---
This Tech assumed care of this PT upon arrival. Pt changed into a hospital gown and hospital socks. Pt placed on monitoring tech, VS done
== END 2023-10-11 00:52 | disposition home or self-care (01) ==
PROVIDERS: Emergency Provider Emergency Medicine Emergency Medical Services; PCP Physician Assistant Medical
DX: D50.9 Iron deficiency anemia, unspecified (principal); R07.89 Other chest pain; R53.83 Other fatigue; Z79.899 Other long term (current) drug therapy
CPT/HCPCS: 36415; 80053; 84484; 85025; 93005; 99283; 99284

== ENCOUNTER → 2023-10-10 21:55 | Outpatient (BNV) | payer OTHER, SELFPAY | PROVIDERS: Emergency Provider Emergency Medicine Emergency Medical Services; PCP Physician Assistant Medical; Visit Provider Internal Medicine Cardiovascular Disease | DX: R07.9 Chest pain, unspecified (principal) | CPT/HCPCS: 93010 ==

== ENCOUNTER 2023-12-27 00:34 | Emergency (ER) | payer OTHER, SELFPAY ==
[2023-12-27 00:35] VITALS: BP 113/57; PULSE 64; RESP 18; TEMP 36.8; O2SAT 99; BMI 20.9
--- NOTE | 2023-12-27 00:50 | MHC.EDTECH ---
Brought to triage area,labs obtained and sent to lab.
[2023-12-27 00:56] LABS: Basophils Percent Auto 0.4 % (0-2); Eosinophils Absolute Auto 0.1 X10*3/uL (0.0-0.4); Eosinophils Percent Auto 1.4 % (0-4); Hematocrit 36.4 % (42.0-52.0); Hemoglobin 11.2 g/dl (14.0-18.0); Lymphocytes Absolute Auto 4.9 X10*3/uL (1.2-4.9); Lymphocytes Percent Auto 61.5 % (20-40); MANUAL DIFF FLAG SCAN; Mean Corpuscular HGB Conc 30.8 g/dl (31.0-36.0); Mean Corpuscular Hemoglobin 22.6 pg (27.0-33.0); Mean Corpuscular Volume 73.4 fL (80.0-98.0); Mean Platelet Volume 9.9 fL (9.4-12.4); Monocytes Absolute Auto 0.5 X10*3/uL (0.1-1.2); Monocytes Percent Auto 6.7 % (2-11); Neutrophils Absolute Auto 2.4 x10*3/uL (2.0-8.3); Platelet Count 301 X10*3/uL (160-400); Red Blood Count 4.96 X10*6/uL (4.60-5.80); Red Cell Distribution Width 13.9 % (11.0-16.0); SCAN SMEAR FLAG 1; White Blood Count 7.9 X10*3/uL (4.8-10.8)
[2023-12-27 01:16] LABS: SLIDE REVIEW VERIFIED
[2023-12-27 02:20] LABS: Alanine Aminotransferase 24 U/L (0-40); Albumin Level 4.7 g/dL (3.5-5.0); Alkaline Phosphatase 57 U/L (39-117); Anion Gap 9 (12-20); Aspartate Amino Transferase 28 U/L (5-37); Bilirubin Total 0.3 mg/dL (0.0-1.0); Blood Urea Nitrogen 17 mg/dL (9-16); Calcium 9.5 mg/dL (8.4-10.2); Carbon Dioxide 30 mmol/L (22-29); Chloride 103 mmol/L (96-108); Creatinine Clr Calc Pharmacy 142.9; Estimated Glomerular Filt Rate > 60; Glucose Random 89 mg/dL (60-115); Potassium 3.8 mmol/L (3.3-5.1); Sodium 138 mmol/L (135-145); Total Protein 7.6 g/dL (6.5-8.0)
== END 2023-12-27 01:11 | disposition left against medical advice (07) ==
PROVIDERS: Emergency Provider Emergency Medicine
DX: R20.0 Anesthesia of skin (principal); R51.9 Headache, unspecified; Z53.21 Procedure and treatment not carried out due to patient leaving prior to being seen by health care provider; F11.20 Opioid dependence, uncomplicated
CPT/HCPCS: 36415; 80053; 85025; 99281; 99283

== ENCOUNTER 2024-01-13 21:35 | Emergency (ER) | payer OTHER, SELFPAY ==
[2024-01-13 21:42] VITALS: BP 107/68; PULSE 74; RESP 20; TEMP 37; O2SAT 98; BMI 19.5
[2024-01-13 23:32] LABS: MANUAL DIFF FLAG NO
[2024-01-13 23:34] LABS: Basophils Percent Auto 0.5 % (0-2); Eosinophils Absolute Auto 0.1 X10*3/uL (0.0-0.4); Eosinophils Percent Auto 0.6 % (0-4); Hematocrit 38.1 % (42.0-52.0); Imm Gran Abs Auto 0.01 X10*3/uL (0.00-0.03); Imm Gran Pct Auto 0.1 % (0.0-0.4); Lymphocytes Absolute Auto 4.4 X10*3/uL (1.2-4.9); Lymphocytes Percent Auto 54.4 % (20-40); Mean Corpuscular HGB Conc 31.5 g/dl (31.0-36.0); Mean Corpuscular Volume 73.1 fL (80.0-98.0); Mean Platelet Volume 10.5 fL (9.4-12.4); Monocytes Absolute Auto 0.6 X10*3/uL (0.1-1.2); Monocytes Percent Auto 7.5 % (2-11); Neutrophils Absolute Auto 2.9 x10*3/uL (2.0-8.3); Neutrophils Percent Auto 36.9 % (45-73); Platelet Count 331 X10*3/uL (160-400); Red Blood Count 5.21 X10*6/uL (4.60-5.80); Red Cell Distribution Width 14.1 % (11.0-16.0)
[2024-01-13 23:48] LABS: Alanine Aminotransferase 27 U/L (0-40); Albumin Level 4.8 g/dL (3.5-5.0); Alkaline Phosphatase 53 U/L (39-117); Anion Gap 16 (12-20); Aspartate Amino Transferase 27 U/L (5-37); Bilirubin Total 0.4 mg/dL (0.0-1.0); Blood Urea Nitrogen 20 mg/dL (9-16); Calcium 10.1 mg/dL (8.4-10.2); Carbon Dioxide 27 mmol/L (22-29); Chloride 103 mmol/L (96-108); Creatinine Clr Calc Pharmacy 95.6; Estimated Glomerular Filt Rate > 60; Glucose Random 85 mg/dL (60-115); Lipase 18 U/L (8-78); Magnesium 2.1 mg/dL (1.6-2.6); Potassium 4.1 mmol/L (3.3-5.1); Sodium 142 mmol/L (135-145); Total Protein 8.1 g/dL (6.5-8.0)
[2024-01-14 00:37] VITALS: BP 110/70; PULSE 70; RESP 18; TEMP 36.9; O2SAT 99
[2024-01-14 01:11] LABS: Appearance Urine Clear; Color Urine Yellow; Glucose Urine UA Negative (Negative); Leukocyte Esterase Urine Negative (Negative); Nitrite Urine Negative (Negative); PH 5.5 (5.0-9.0); Specific Gravity - Urine 1.025 (1.005-1.025); Urine Blood Negative (Negative); Urine Ketones Negative (Negative); Urine Protein Negative (Neg-Trace)
[2024-01-14 01:13] LABS: Bacteria Urine None Seen (None Seen); Hyaline Casts Urine 0-2 /LPF (0-2); RBC Urine 0-2 /HPF (0-2); Squamous Epithelial Cell Urine 0-2 /HPF (0-2); WBC Urine 0-5 /HPF (0-5)
--- NOTE | 2024-01-14 02:14 | ED_ITS ---
HPI - Abdominal Pain General Chief Complaint: Abdominal Pain Stated Complaint: abd pain Time Seen by Provider: 01/14/24 01:10 Source: patient Mode of arrival: ambulatory History of Present Illness HPI narrative: 23-year-old male without significant past medical history states that he has a headache with epigastric discomfort or proximally 1 week. Reports intermittent chills. Related Data Previous Rx's ?Medication ?Instructions ?Recorded omeprazole 20 mg capsule,delayed 20 mg PO BID #60 caps 09/10/23 release ondansetron 4 mg disintegrating 4 mg PO Q8H PRN nausea and 09/10/23 tablet vomiting #20 tabs sucralfate 100 mg/mL oral 10 ml PO BID #1,000 mL 09/10/23 suspension (Carafate) ferrous sulfate 325 mg (65 mg 325 mg PO BID 60 days #120 tabs 10/11/23 iron) tablet sucralfate 100 mg/mL oral 10 ml PO BID #420 mL 01/14/24 suspension (Carafate) Allergies Allergy/AdvReac Type Severity Reaction Status Date / Time No Known Allergies Allergy Verified 01/13/24 21:44 [No Known Allergies*] Review of Systems Review of Systems Positives and negatives as stated in HPI PMFSH Past Medical History Source: nursing notes reviewed Medical History Opiate use Social History Social History Patient Tobacco Use Status: Never used Tobacco Smoked in Last 30 Days: No Use of substances other than those prescribed or required for medical reasons: Yes Substance Use Type: Former Substance User Substance Use Type Other:: On Suboxone Substance Use Frequency: Chronic Longstanding Advance Directives: No Advance Directives Information Provided: Yes Do you have a plan to hurt others: No Plan Physical Exam ED Vital Signs: Vital Signs - 24 hr 01/13/24 21:42 01/14/24 00:37 Temperature 98.6 F 98.4 F Pulse Rate 74 70 Respiratory Rate 20 18 Blood Pressure 107/68 110/70 Pulse Oximetry 98 99 Oxygen Delivery Method Room Air Room Air BMI result Body Mass Index 19.5 VITAL SIGNS: Reviewed. GENERAL: Well developed, well nourished, in no acute distress. HEAD: Normocephalic/atraumatic EYES: PERRLA, EOMI EARS: Ext canals without abnormality NOSE: Nares patent bilateral OROPHARYNX: no oral lesions noted, posterior pharynx clear NECK: Supple, no adenopathy LUNGS: Normal breath sounds. No adventitious sounds or accessory muscle use. SpO2<99> CARDIOVASCULAR: Regular rate and rhythm without noted murmurs ABDOMEN: Soft, non-tender, non-distended with bowel sounds. MUSCULOSKELETAL: No tenderness, deformities, or effusions noted on gross inspection. EXTREMITIES: No cyanosis, clubbing or edema. SKIN: Inspection of the skin reveals no rashes NEUROLOGIC: Alert and oriented x 4. Strength and sensation to light touch were grossly intact x 4. Medical Decision Making Medical Decision Making [facility] Narrative: 23-year-old male with history and clinical presentation, DDX: Gastritis, lower clinical suspicion for pancreatitis or intra-abdominal infection. I reviewed all investigations and hematologic indices are negative for leukocytosis/left shift and patient has chronically stable microcytic anemia without thrombocytopenia. Chemistry indices are negative for HECTOR/electrolyte or liver enzyme derangements. Urinalysis negative for UTI or hematuria. Serologies negative for COVID-19/influenza. Patient received GI cocktail and Carafate, he is otherwise discharged with recommended follow-up as scheduled. Differential Diagnosis Differential Diagnoses: The differential diagnosis associated with the presentation includes Please see the discussion above Admission/Observation Consideration of admission/observation: Escalation of care including admission/observation considered Please see the discussion above Lab Data [facility] Lab Attestation statement: I reviewed the patient's lab results. Please see the discussion above 01/13/24 23:04 01/13/24 23:04 Labs: Lab Results 01/13/24 01/14/24 01/14/24 Range/Units 23:04 00:59 02:00 WBC 8.0 (4.8-10.8) X10*3/uL RBC 5.21 (4.60-5.80) X10*6/uL Hgb 12.0 L (14.0-18.0) g/dl Hct 38.1 L (42.0-52.0) % MCV 73.1 L (80.0-98.0) fL MCH 23.0 L (27.0-33.0) pg MCHC 31.5 (31.0-36.0) g/dl RDW 14.1 (11.0-16.0) % Plt Count 331 (160-400) X10*3/uL MPV 10.5 (9.4-12.4) fL Immature Gran % (Auto) 0.1 (0.0-0.4) % Neut % (Auto) 36.9 L (45-73) % Lymph % (Auto) 54.4 H (20-40) % [place] % (Auto) 7.5 (2-11) % Eos % (Auto) 0.6 (0-4) % Baso % (Auto) 0.5 (0-2) % Lymph # (Auto) 4.4 (1.2-4.9) X10*3/uL [place] # (Auto) 0.6 (0.1-1.2) X10*3/uL Eos # (Auto) 0.1 (0.0-0.4) X10*3/uL Baso # (Auto) 0.0 (0.0-0.2) X10*3/uL Abs Immat Gran (auto) 0.01 (0.00-0.03) X10*3/uL Absolute Neuts (auto) 2.9 (2.0-8.3) x10*3/uL Absolute Nucleated RBC 0.000 (0.0-0.012) X10*3/uL Nucleated RBC % (auto) 0.0 (0.0-0.2) /100WBC Sodium 142 (135-145) mmol/L Potassium 4.1 (3.3-5.1) mmol/L Chloride 103 (96-108) mmol/L Carbon Dioxide 27 (22-29) mmol/L Anion Gap 16 (12-20) BUN 20 H (9-16) mg/dL Creatinine 1.06 (0.5-1.4) mg/dL Estim Creat Clear Calc 95.6 Estimated GFR > 60 Random Glucose 85 (60-115) mg/dL Calcium 10.1 D (8.4-10.2) mg/dL Magnesium 2.1 (1.6-2.6) mg/dL Total Bilirubin 0.4 (0.0-1.0) mg/dL AST 27 (5-37) U/L ALT 27 (0-40) U/L Alkaline Phosphatase 53 (39-117) U/L Total Protein 8.1 H (6.5-8.0) g/dL Albumin 4.8 (3.5-5.0) g/dL Lipase 18 (8-78) U/L Urine Color Yellow Urine Appearance Clear Urine pH 5.5 (5.0-9.0) Ur Specific [place] 1.025 (1.005-1.025) Urine Protein Negative (Neg-Trace) mg/dL Urine Glucose (UA) Negative (Negative) mg/dL Urine Ketones Negative (Negative) mg/dL Urine Blood Negative (Negative) Urine Nitrite Negative (Negative) Ur Leukocyte Esterase Negative (Negative) Urine RBC 0-2 (0-2) /HPF Urine WBC 0-5 (0-5) /HPF Ur Squamous Epith Cells 0-2 (0-2) /HPF Urine Bacteria None Seen (None Seen) Hyaline Casts 0-2 (0-2) /LPF COVID-19 (NICKI) Negative (Negative) COVID-19 Clin Com See Note Influenza Type A (FERDINAND) Negative (Negative) Influenza Type B (FERDINAND) Negative (Negative) Influenza A & B Note See Note External Record Review External record reviewed: Outpatient record and Prior outpatient labs Medications Administered Discontinued Medications Generic Name Dose Route Start Last Admin Trade Name Freq PRN Reason Stop Dose Admin Ondansetron HCl 4 mg 01/14/24 02:14 01/14/24 02:25 Ondansetron Odt 4 Mg Tab.Rapdis TRANSLINGU 01/14/24 02:15 4 mg ONCE ONE Administration Critical Care Time Critical Care Time Critical Care Time: Yes Total Critical Care Time: 30 Attestation: I personally attest to this time spent taking care of the patient. Discharge Plan Discharge Clinical Impression: Gastritis, Bleeding hemorrhoid Patient Disposition: Home, Self-Care Instructions: Gastritis (ED), Diet for Stomach Ulcers and Gastritis (ED) Additional Instructions: Follow-up with your cardiology manager as scheduled. Prescriptions: New sucralfate [Carafate] 100 mg/mL suspension 10 ml PO BID Qty: 420 0RF No Action ondansetron 4 mg tablet,disintegrating 4 mg PO Q8H PRN (Reason: nausea and vomiting) Qty: 20 0RF omeprazole 20 mg capsule,delayed release(DR/EC) 20 mg PO BID Qty: 60 1RF sucralfate [Carafate] 100 mg/mL suspension 10 ml PO BID Qty: 1000 0RF ferrous sulfate 325 mg (65 mg iron) tablet 325 mg PO BID 60 Days Qty: 120 0RF Print Language: Mongolian
[2024-01-14] MEDS: Ondansetron ODT 4 MG TAB.RAPDIS TRANSLINGU (02:25)
[2024-01-14 02:29] LABS: COVID-19 Test Negative (Negative); IDNOW Serial# 08D9AD1C; IDNOW Serial# 152EDE1D; Influenza A Negative (Negative); Influenza B2 Negative (Negative)
[2024-01-14] MEDS: Magnesium Hydrox/Alum Hydrox 30 ML ORAL.SUSP PO (02:40)
[2024-01-14] MEDS: Lidocaine HCl Viscous 2 % 15 ML SOLUTION 10 ML MUCOUS MEM (02:40)
[2024-01-14] MEDS: Sucralfate Oral Suspension 1 GM/10 ML ORAL.SUSP PO (02:40)
[2024-01-14 02:57] VITALS: BP 118/78; PULSE 68; RESP 18; TEMP 36.8; O2SAT 99
== END 2024-01-14 02:58 | disposition home or self-care (01) ==
PROVIDERS: Emergency Provider Student in an Organized Health Care Education/Training Program
DX: K29.70 Gastritis, unspecified, without bleeding (principal); K64.8 Other hemorrhoids; Z11.52 Encounter for screening for COVID-19; Z79.899 Other long term (current) drug therapy
CPT/HCPCS: 36415; 80053; 81001; 83690; 83735; 85025; 87502; 87635; 99284

== ENCOUNTER 2025-03-04 19:38 | Emergency (ER) | payer OTHER, SELFPAY ==
--- NOTE | ~2025-03-04 | XR_ITS ---
CLINICAL HISTORY: pain --- Additional Notes or Special Instructions: constipation 1 view abdomen Comparison: None provided Findings: Bowel-gas pattern is unremarkable. No pneumoperitoneum or pneumatosis. There is a moderate stool burden in the ascending, transverse, descending and sigmoid colon. Stool and bowel gas extends to the rectum. Renal contours appear normal. No abnormal calcifications. No acute fractures. IMPRESSION: Moderate stool burden. This document has been electronically signed by: Rahat Perera III, MD PHD on 03/04/2025 22:22:08
[2025-03-04 19:41] VITALS: BP 109/56; PULSE 73; RESP 16; TEMP 36.6; O2SAT 98; BMI 22.0
--- NOTE | 2025-03-04 19:42 | ED_ITS ---
HPI - Abdominal Pain General Chief Complaint: Abdominal Pain Stated Complaint: abd pain Time Seen by Provider: 03/04/25 20:53 Source: patient Limitations: no limitations History of Present Illness ED Provider: Lidia Harp PA-C HPI narrative: 24-year-old male with a history of opiate use disorder on Suboxone, GERD, constipation presents with constipation. Associated epigastric discomfort with 2 episodes of nausea vomiting. Denies abdominal distention or inability to pass flatus. Patient having bowel movements but they are minimal. Related Data Previous Rx's ?Medication ?Instructions ?Recorded omeprazole 20 mg capsule,delayed 20 mg PO BID #60 caps 09/10/23 release ondansetron 4 mg disintegrating 4 mg PO Q8H PRN nausea and 09/10/23 tablet vomiting #20 tabs sucralfate 100 mg/mL oral 10 ml PO BID #1,000 mL 09/10 suspension (Carafate) ferrous sulfate 325 mg (65 mg 325 mg PO BID 60 days #1 20 tabs 10/11/23 iron) tablet sucralfate 100 mg/mL oral 10 ml PO BID #420 mL 4 suspension (Carafate) ondansetron HCl 4 mg tablet 4 mg PO Q8H PRN nausea and 03/04/25 vomiting #10 tabs sucralfate 100 mg/mL oral 10 ml PO QID PRN dyspepsia # 300 mL 03/04/25 suspension (Carafate) Allergies Allergy/AdvReac Type Severity Reaction Status Date / Time No Known Allergies (No Known Allergy Verified 03/04/25 19:42 Allergies*) Review of Systems Review of Systems Yes all other systems are reviewed and are negative Constitutional: Denies fatigue and Denies fever(s) Cardiovascular: Denies chest pain and Denies dyspnea Respiratory: Denies cough and Denies dyspnea Gastrointestinal: Reports abdominal pain, Reports constipation, Denies diarrhea, Reports nausea and Reports vomiting Endocrine: Denies fatigue PMFSH Past Medical History Attestation statement: The following information was validated with the patient. Medical History Opiate use Social History Social History Patient Tobacco Use Status: Never used Tobacco Substance Use Type: Former Substance User Advance Directives: No Advance Directives Information Provided: Yes Physical Exam ED Vital Signs: Vital Signs - 24 hr 03/04/25 19:41 03/04/25 20:50 Temperature 97.9 F 98.2 F Pulse Rate 73 58 Respiratory Rate 16 16 Blood Pressure 109/56 L 103/51 L Pulse Oximetry 98 98 Oxygen Delivery Method Room Air Room Air BMI result Body Mass Index 22.0 Const Other: Alert well-appearing Orientation/consciousness: patient oriented x3 Resp Effort & Inspection: normal respiratory effort Cardio Other: Normal peripheral perfusion GI Other: Abdomen is soft, nondistended, nontender no guarding Skin Other: Warm dry no rash Neuro General: patient oriented x3, gait normal, no focal motor deficits and CN's II- XI intact bilaterally Psych Other: Cooperative Course Course Course Narrative: 03/04/251942 JOYCE Fernando This is a Rapid Medical Examination (RME) performed by Cosme Crowder PA-C in triage. Full HPI, ROS, assessment and treatment plan per primary provider in the Main ED. Hx: 24 yo M here for eval of epigastric pain, N/V after eating a hamburger 2d ago. Plan: labs Medical Decision Making Medical Decision Making [facility] Narrative: 24-year-old male with a history of opiate use disorder on Suboxone, GERD, constipation presents with constipation. Associated epigastric discomfort with 2 episodes of nausea vomiting. Denies abdominal distention or inability to pass flatus. Patient having bowel movements but they are minimal. Problem: Use of Suboxone History: Per patient I have considered the following differential diagnoses: Biliary colic, cholecystitis, gastritis, pancreatitis, SBO, constipation Plan: Screening labs were obtained from triage and are overall normal. The patient has chronic constipation secondary to his Suboxone, he is likely constipated now, he is not having obstructive symptoms, we will obtain a KUB. Given distribution of discomfort, I did consider underlying biliary versus gastric etiology as cause for symptoms, however his LFTs are normal, his abdominal exam is benign and nonfocal, he does not warrant advanced imaging at this time. Giving Zofran and Carafate. His acid reflux is likely exacerbated secondary to underlying constipation. I have independently reviewed the following tests: Labs: No leukocytosis, not anemic, no electrolyte abnormality noted KUB:Comparison: None provided Findings: Bowel-gas pattern is unremarkable. No pneumoperitoneum or pneumatosis. There is a moderate stool burden in the ascending, transverse, descending and sigmoid colon. Stool and bowel gas extends to the rectum. Renal contours appear normal. No abnormal calcifications. No acute fractures. IMPRESSION: Moderate stool burden. Lab Data 03/04/25 19:46 03/04/25 19:46 Labs: Lab Results 03/04/25 Range/Units 19:46 WBC 6.6 (4.8-10.8) X10*3/uL RBC 4.91 (4.60-5.80) X10*6/uL Hgb 11.4 L (14.0-18.0) g/dl Hct 36.1 L (42.0-52.0) % MCV 73.5 L (80.0-98.0) fL MCH 23.2 L (27.0-33.0) pg MCHC 31.6 (31.0-36.0) g/dl RDW 14.8 (11.0-16.0) % Plt Count 331 (160-400) X10*3/uL MPV 10.1 (9.4-12.4) fL Immature Gran % (Auto) 0.3 (0.0-0.4) % Neut % (Auto) 44.8 L (45-73) % Lymph % (Auto) 45.2 H (20-40) % [place] % (Auto) 7.7 (2-11) % Eos % (Auto) 1.5 (0-4) % Baso % (Auto) 0.5 (0-2) % Lymph # (Auto) 3.0 (1.2-4.9) X10*3/uL [place] # (Auto) 0.5 (0.1-1.2) X10*3/uL Eos # (Auto) 0.1 (0.0-0.4) X10*3/uL Baso # (Auto) 0.0 (0.0-0.2) X10*3/uL Abs Immat Gran (auto) 0.02 (0.00-0.03) X10*3/uL Absolute Neuts (auto) 3.0 (2.0-8.3) x10*3/uL Absolute Nucleated RBC 0.000 (0.0-0.012) X10*3/uL Nucleated RBC % (auto) 0.0 (0.0-0.2) /100WBC Sodium 140 (135-145) mmol/L Potassium 4.0 (3.3-5.1) mmol/L Chloride 106 (96-108) mmol/L Carbon Dioxide 28 (22-29) mmol/L Anion Gap 10 L (12-20) BUN 14 (9-16) mg/dL Creatinine 0.87 (0.5-1.4) mg/dL Estim Creat Clear Calc 130.4 Estimated GFR > 60 Random Glucose 96 (60-115) mg/dL Calcium 9.0 D (8.4-10.2) mg/dL Magnesium 2.2 (1.6-2.6) mg/dL Total Bilirubin 0.4 (0.0-1.0) mg/dL AST 34 (5-37) U/L ALT 30 (0-40) U/L Alkaline Phosphatase 60 (39-117) U/L Total Protein 7.5 (6.5-8.0) g/dL Albumin 4.7 (3.5-5.0) g/dL Lipase 17 (8-78) U/L Medications Administered Discontinued Medications Generic Name Dose Route Start Last Admin Trade Name Freq PRN Reason Stop Dose Admin Ondansetron HCl 4 mg 03/04/25 21:09 03/04/25 21:20 Ondansetron Odt 4 Mg Tab.Rapdis TRANSLINGU 03/04/25 21:10 4 mg ONCE ONE Administration Sucralfate 1 gm 03/04/25 21:09 03/04/25 21:20 Sucralfate Oral Suspension 1 Gm/10 Ml Oral.Susp PO 03/04/25 21:10 1 gm ONCE ONE Administration Discharge Plan Discharge Clinical Impression: Constipation Patient Disposition: Home, Self-Care Instructions: Constipation (ED) Additional Instructions: All of your screening labs were normal, the x-ray revealed a your considerably constipated. See home care instructions. Use [id number] Colace this is a stool softener, twice a day. Use [id number] MiraLax, 3 to 4 times a day, until you begin having multiple large volume bowel movements. Once you evacuate your current stool burden, stay on the Colace daily, take the MiraLax daily, to help prevent further episodes of constipation. Uses Zofran as needed for nausea, use the Carafate as needed for upper abdominal discomfort/indigestion. Prescriptions: New sucralfate [Carafate] 100 mg/mL suspension 10 ml PO QID PRN (Reason: dyspepsia) Qty: 300 0RF Rx Instructions: swish in mouth and swallow; use after food/drink ondansetron HCl 4 mg tablet 4 mg PO Q8H PRN (Reason: nausea and vomiting) Qty: 10 0RF No Action ondansetron 4 mg tablet,disintegrating 4 mg PO Q8H PRN (Reason: nausea and vomiting) Qty: 20 0RF omeprazole 20 mg capsule,delayed release(DR/EC) 20 mg PO BID Qty: 60 1RF sucralfate [Carafate] 100 mg/mL suspension 10 ml PO BID Qty: 1000 0RF ferrous sulfate 325 mg (65 mg iron) tablet 325 mg PO BID 60 Days Qty: 120 0RF sucralfate [Carafate] 100 mg/mL suspension 10 ml PO BID Qty: 420 0RF Print Language: Romanian
[2025-03-04 19:50] LABS: MANUAL DIFF FLAG NO
[2025-03-04 19:51] LABS: Basophils Percent Auto 0.5 % (0-2); Eosinophils Absolute Auto 0.1 X10*3/uL (0.0-0.4); Eosinophils Percent Auto 1.5 % (0-4); Hematocrit 36.1 % (42.0-52.0); Hemoglobin 11.4 g/dl (14.0-18.0); Imm Gran Abs Auto 0.02 X10*3/uL (0.00-0.03); Imm Gran Pct Auto 0.3 % (0.0-0.4); Lymphocytes Percent Auto 45.2 % (20-40); Mean Corpuscular HGB Conc 31.6 g/dl (31.0-36.0); Mean Corpuscular Hemoglobin 23.2 pg (27.0-33.0); Mean Corpuscular Volume 73.5 fL (80.0-98.0); Mean Platelet Volume 10.1 fL (9.4-12.4); Monocytes Absolute Auto 0.5 X10*3/uL (0.1-1.2); Monocytes Percent Auto 7.7 % (2-11); Neutrophils Percent Auto 44.8 % (45-73); Platelet Count 331 X10*3/uL (160-400); Red Blood Count 4.91 X10*6/uL (4.60-5.80); Red Cell Distribution Width 14.8 % (11.0-16.0); White Blood Count 6.6 X10*3/uL (4.8-10.8)
[2025-03-04 20:04] LABS: Alanine Aminotransferase 30 U/L (0-40); Albumin Level 4.7 g/dL (3.5-5.0); Alkaline Phosphatase 60 U/L (39-117); Anion Gap 10 (12-20); Aspartate Amino Transferase 34 U/L (5-37); Bilirubin Total 0.4 mg/dL (0.0-1.0); Blood Urea Nitrogen 14 mg/dL (9-16); Carbon Dioxide 28 mmol/L (22-29); Chloride 106 mmol/L (96-108); Creatinine Clr Calc Pharmacy 130.4; Estimated Glomerular Filt Rate > 60; Glucose Random 96 mg/dL (60-115); Lipase 17 U/L (8-78); Magnesium 2.2 mg/dL (1.6-2.6); Sodium 140 mmol/L (135-145); Total Protein 7.5 g/dL (6.5-8.0)
[2025-03-04 20:50] VITALS: BP 103/51; PULSE 58; RESP 16; TEMP 36.8; O2SAT 98
[2025-03-04] MEDS: Sucralfate Oral Suspension 1 GM/10 ML ORAL.SUSP PO (21:20)
[2025-03-04] MEDS: Ondansetron ODT 4 MG TAB.RAPDIS TRANSLINGU (21:20)
[2025-03-04 23:22] VITALS: BP 110/60; PULSE 64; RESP 20; TEMP 36.8; O2SAT 99
[2025-03-04 23:25] VITALS: BP 110/60; PULSE 64; RESP 20; TEMP 36.8; O2SAT 99
== END 2025-03-04 23:26 | disposition home or self-care (01) ==
PROVIDERS: Physician Assistant Medical; Emergency Provider Emergency Medicine Emergency Medical Services
DX: K59.00 Constipation, unspecified (principal); Z79.899 Other long term (current) drug therapy
CPT/HCPCS: 36415; 74018; 80053; 83690; 83735; 85025; 99283

== ENCOUNTER → 2025-03-04 21:09 | Outpatient (BNV) | payer OTHER, SELFPAY | PROVIDERS: Emergency Provider Emergency Medicine Emergency Medical Services; Visit Provider Radiology Diagnostic Radiology | DX: R10.9 Unspecified abdominal pain (principal) | CPT/HCPCS: 74018 ==